=== PATIENT | female | born 1950 | race Caucasian/White ===

== ENCOUNTER → 2017-06-14 | Outpatient (CLI) | payer MEDICARE ==
[2017-06-14 11:27] LABS: ALT 41 U/L (9-52); AST 24 U/L (14-36); Alkaline Phosphatase 66 U/L (38-126); Anion Gap 10 mmol/L; Blood Urea Nitrogen 18 mg/dL (7-17); Calcium 9.6 mg/dL (8.4-10.2); Carbon Dioxide 29 mmol/L (22-30); Chloride 102 mmol/L (98-107); Glucose 211 mg/dL (74-99); Non-African American GFR(MDRD) >60 (>60 ml/min/1.73 sqM); Potassium 3.9 mmol/L (3.5-5.1); Sodium 141 mmol/L (137-145); Total Bilirubin 0.4 mg/dL (0.2-1.3); Total Protein 6.4 g/dL (6.3-8.2)
== END | disposition home or self-care (01) ==
LOC: LABWHC1 10:49
PROVIDERS: ATTEND Internal Medicine
DX: E11.65 Type 2 diabetes mellitus with hyperglycemia (principal)
CPT/HCPCS: 36415; 80053; 84681

== ENCOUNTER → 2018-02-20 | Outpatient (CLI) | payer MEDICARE ==
--- NOTE | 2018-02-20 08:40 | MR ---
EXAMINATION TYPE: MR brain wo/w con DATE OF EXAM: 02/20/2018 COMPARISON: NONE HISTORY: Severe headaches TECHNIQUE: Multiplanar, multisequence images of the brain and brainstem is performed without and with IV contras t, utilizing 7.0 mL intravenous Gadavist . FINDINGS: Diffusion weighted images demonstrate no evidence of a recent infarct or other diffusion ab normality. There is no extra-axial fluid collection. There are 2 punctate foci of T2/FLAIR hyperinte nsity within the right hemisphere in addition to mild periventricular white matter change. The larges t within the right frontal lobe on the right measures 4 mm on axial fat sat FLAIR image 16. On the le ft there are 3 punctate foci the largest measuring 3 mm in the periatrial left parietal white matter on image 19. The ventricular system and cisternal spaces are normal in size and appearance. The brai n volume is age appropriate. Midline structures demonstrate normal morphology. There is a 4 mm pineal gland cyst incidentally note d. The craniocervical junction appears within normal limits. Post contrast images demonstrate no abn ormal enhancement. The dural venous sinuses appear patent. The visualized sinuses demonstrate very mi nimal mucosal thickening within the left maxillary and ethmoid sinuses. Remaining paranasal sinuses a nd mastoid air cells are well aerated. The globes are intact. Major intracranial flow voids are maint ained and enhance with contrast although the right posterior communicating artery is not visualized a nd could be diminutive or congenitally absent. IMPRESSION: 1. Minimal nonspecific white matter change that given its distribution favors chronic migraines with superimposed mild sequela of microangiopathy. Overall burden is mild. 2. Mild paranasal sinus disease within the ethmoid and left maxillary sinuses. 3. No abnormal intracranial enhancement, midline shift or mass effect.
== END ==
LOC: RADMRIMAIN 05:58
PROVIDERS: ATTEND Internal Medicine
DX: R90.82 White matter disease, unspecified (principal); J32.8 Other chronic sinusitis; H11.32 Conjunctival hemorrhage, left eye
CPT/HCPCS: 82565; 70553; 36415; A9581

== ENCOUNTER 2019-02-28 09:24 | Day surgery (SDC) | payer MEDICARE ==
[2019-02-26 15:35] VITALS: BMI 27.4
[~2019-02-28 09:24] MED LIST: LACTATED RINGERS 1,000 ML IV SCH; LIDOCAINE 1% 20 ML VIAL (10MG/ML) FOR IV START INTRADERMA PRN
[2019-02-28 09:58] VITALS: RESP 16; TEMP 97.4
[2019-02-28 09:58] LABS: Glucose,Whole Blood 156 mg/dL (75-99)
[2019-02-28] MEDS ORDERED: PROPOFOL 10 MG/ML 20 ML VIAL IV ONE (10:35)
[2019-02-28] MEDS ORDERED: LIDOCAINE 1% INJ 10MG/ML (20 ML MDV) ONE (10:35)
--- NOTE | 2019-02-28 10:54 | P.PCN ---
Date of Procedure: 02/28/19 Procedure(s) Performed: BRIEF HISTORY: Patient is a 69-year-old pleasant white female scheduled for an elective colonoscopy as a part of screening for colorectal neoplasia. Her last colonoscopy was 17 years ago. PROCEDURE PERFORMED: Colonoscopy. PREOPERATIVE DIAGNOSIS: Screening for colon cancer. IV sedation per Anesthesia. PROCEDURE: After informed consent was obtained, the patient, was brought into the endoscopy unit. IV sedation was administered by Anesthesia under continuous monitoring. Digital rectal examination was normal. Initially the Olympus CF-160 flexible video colonoscope was then inserted in the rectum, gradually advanced into the cecum without any difficulty. Careful examination was performed as the scope was gradually being withdrawn. Ileocecal valve and the appendiceal orifice were visualized and appeared normal. Prep was excellent. Mucosa of the cecum, ascending colon, transverse colon, descending colon, sigmoid colon, and rectum appeared normal. Retroflexion was performed in the rectum and no lesions were seen. The patient tolerated the procedure well. IMPRESSION: Normal-appearing colon from rectum to cecum with no evidence of colitis or colorectal neoplasia. RECOMMENDATIONS: Findings of this examination were discussed with the patient as well as her family. He was advised to have a repeat screening colonoscopy in 10 years..
[2019-02-28 11:36] VITALS: BP 128/71; PULSE 63
== END 2019-02-28 11:51 | disposition home or self-care (01) ==
LOC: ORWHC2ENDO 09:24
PROVIDERS: ATTEND Internal Medicine Gastroenterology
DX: Z12.11 Encounter for screening for malignant neoplasm of colon (principal); I10 Essential (primary) hypertension; E78.5 Hyperlipidemia, unspecified; E11.9 Type 2 diabetes mellitus without complications; C44.311 Basal cell carcinoma of skin of nose; Z79.82 Long term (current) use of aspirin; Z79.84 Long term (current) use of oral hypoglycemic drugs; Z79.899 Other long term (current) drug therapy
CPT/HCPCS: G0121; J2001; J2704

== ENCOUNTER → 2019-07-12 | Outpatient (CLI) | payer MEDICARE ==
--- NOTE | 2019-07-12 09:45 | XR ---
EXAMINATION TYPE: XR lumbosacral spine min 4V DATE OF EXAM: 07/12/2019 COMPARISON: NONE HISTORY: 69-year-old female low back pain TECHNIQUE: 05/21/2014 FINDINGS: 3 mm nonobstructive calculus in each kidney. 5 lumbar type vertebral bodies. Facet arthropathy mid to lower lumbar spine. Mild degenerative disc disease and endplate spondylosis throughout. More moderat e degenerative disc disease L5-S1 with disc height loss and vacuum phenomenon. Vertebral body heights are preserved and alignment is maintained. No pars interarticularis defect. IMPRESSION: 1. Mild multilevel degenerative disc disease, more moderate at L5-S1. 2. Scattered mild facet arthropathy, greatest in the lower lumbar spine. 3. No vertebral compression collapse or malalignment. 4. A 3 mm nonobstructive calculus in each kidney.
--- NOTE | 2019-07-12 13:22 | US ---
EXAMINATION TYPE: US abdomen complete DATE OF EXAM: 07/12/2019 COMPARISON: NONE CLINICAL HISTORY: 69-year-old female R10.11 right upper quadrant abdominal pain. x 3 weeks TECHNIQUE: Multiple sonographic images of the abdomen are obtained. FINDINGS: EXAM MEASUREMENTS: Liver Length: 17.1 cm Gallbladder Wall: 0.1 cm CBD: 0.3 cm Spleen: 9.0 cm Right Kidney: 10.1 x 5.0 x 3.6 cm Left Kidney: 10.4 x 5.2 x 4.8 cm Pancreas: Only portions of the pancreas body are seen. Remainder is obscured by bowel gas shadowing. Liver: Somewhat echogenic and heterogeneous. No focal lesion seen. Borderline enlarged. Gallbladder: Layering gravel and small calculi. No abnormal distention or wall thickening.Evidence for sonographic Alvarez's sign: No CBD: wnl Spleen: wnl Right Kidney: No hydronephrosis. Left Kidney: No hydronephrosis. Upper IVC: wnl Abd Aorta: wnl IMPRESSION: 1. Layering gravel and small calculi within the gallbladder. 2. Somewhat echogenic and heterogeneous appearance to the liver could represent hepatic steatosis or other nonspecific hepatocellular disease. Clinically correlate. 3. No biliary ductal dilatation.
== END | disposition home or self-care (01) ==
LOC: RADUSWWP 08:10
PROVIDERS: ATTEND Internal Medicine
DX: M51.36 Other intervertebral disc degeneration, lumbar region (principal); M51.37 Other intervertebral disc degeneration, lumbosacral region; M46.96 Unspecified inflammatory spondylopathy, lumbar region; K80.20 Calculus of gallbladder without cholecystitis without obstruction
CPT/HCPCS: 72110; 76700

== ENCOUNTER → 2019-07-31 | Outpatient (CLI) | payer MEDICARE ==
--- NOTE | 2019-07-31 10:21 | XR ---
EXAMINATION TYPE: XR ankle complete RT DATE OF EXAM: 07/31/2019 CLINICAL HISTORY: Right ankle pain. Swelling over the lateral malleolus for 3 days with no known inju ry. TECHNIQUE: Frontal, lateral and oblique images of the right ankle are obtained. COMPARISON: None. FINDINGS: There is no acute fracture/dislocation evident in the right ankle. The ankle mortise appe ars within normal limits. Small plantar and Achilles heel spurs. Minimal scoliosis of the talotibial joint. No talar dome flattening. The overlying soft tissue appears unremarkable. IMPRESSION: There is no acute fracture or dislocation in the right ankle. Mild hindfoot arthropathy and small heel spurs.
== END ==
LOC: RADXRYALE 09:41
PROVIDERS: ATTEND Internal Medicine
DX: M12.871 Other specific arthropathies, not elsewhere classified, right ankle and foot (principal); M77.31 Calcaneal spur, right foot

== ENCOUNTER → 2020-11-20 | Outpatient (CLI) | payer MEDICARE ==
--- NOTE | 2020-11-20 11:45 | XR ---
EXAM TYPE: LUMBAR SPINE X RAY SERIES COMPARISON: NONE HISTORY: Pain TECHNIQUE: 4 views are submitted. FINDINGS: Alignment is anatomic. The pedicles are intact. The transverse processes are intact. There is mult ilevel hypertrophic and degenerative changes. Multilevel facet arthropathy. Vascular calcifications n oted. Surgical clips in the right upper quadrant. SI joint arthropathy noted. IMPRESSION: 1. Multilevel hypertrophic and degenerative changes.
== END | disposition home or self-care (01) ==
LOC: RADXRYALE 11:22
PROVIDERS: ATTEND Internal Medicine
DX: M47.817 Spondylosis without myelopathy or radiculopathy, lumbosacral region (principal)
CPT/HCPCS: 72110

== ENCOUNTER → 2021-06-10 | Outpatient (CLI) | payer MEDICARE ==
--- NOTE | 2021-06-11 12:05 | XR ---
EXAMINATION TYPE: XR sternum DATE OF EXAM: 06/10/2021 COMPARISON: NONE HISTORY: 71-year-old female [id number], unspecified chest pain TECHNIQUE: 2 views FINDINGS: No depressed or angulated sternal fracture seen. Sternomanubrial joint is intact. The sternoclavicula r joints appear symmetric. IMPRESSION: No depressed or angulated sternal fracture seen.
== END | disposition home or self-care (01) ==
LOC: RADXRYALE 16:11
PROVIDERS: ATTEND Internal Medicine
DX: R07.9 Chest pain, unspecified (principal)
CPT/HCPCS: 71120

== ENCOUNTER → 2021-07-27 | Outpatient (CLI) | payer MEDICARE ==
--- NOTE | 2021-07-27 21:46 | XR ---
EXAMINATION TYPE: XR ankle complete LT DATE OF EXAM: 07/27/2021 CLINICAL HISTORY: Pain after falling injury. TECHNIQUE: Frontal, lateral and oblique images of the left ankle are obtained. COMPARISON: None. FINDINGS: There is an acute minimally displaced intra-articular spiral type fracture lateral malleol us at level of the ankle mortise. Mild to moderate associated soft tissue swelling. Posterior and med ial malleoli are intact. The ankle mortise symmetry appears within normal limits. The overlying sof t tissue appears unremarkable. Small superior calcaneal spurring and moderate to large sized inferior calcaneal spurring is incidentally noted. IMPRESSION: There is an acute minimally displaced intra-articular spiral type fracture through the l ateral malleolus. (Prasad type B) Initial encounter closed type post traumatic fracture.
== END | disposition home or self-care (01) ==
LOC: RADXRYALE 16:33
PROVIDERS: ATTEND Internal Medicine
DX: S82.62XA Displaced fracture of lateral malleolus of left fibula, initial encounter for closed fracture (principal)

== ENCOUNTER → 2023-10-27 | Outpatient (CLI) | payer MEDICARE ==
--- NOTE | 2023-10-28 14:51 | MM ---
Reason for Exam: Screening (asymptomatic). Last mammogram was performed 2 year(s) and 1 month(s) ago. Patient History: Menarche at age 12. First Full-Term at age 25. Postmenopausal. Other cancer. Hormonal Contraceptives, starting at age 20 for 20 years. Risk Values: Marisol 5 year model risk: 2.0%. NCI Lifetime model risk: 4.8%. Prior Study Comparison: 09/23/2011 Bilateral Screening Mammogram, [facility]. 11/14/2012 Bilateral Screening Mammogram, [facility]. 01/01/2014 Bilateral Screening Mammogram, [facility]. Tissue Density: The breast tissue is heterogeneously dense. This may lower the sensitivity of mammography. Findings: Analyzed By CAD. There is no suspicious group of microcalcifications or new suspicious mass. Benign-appearing calcifications bilaterally. Overall Assessment: Benign, BI-RAD 2 Management: Screening Mammogram of both breasts in [address] [facility] will attempt to contact patient to return for supplemental views and ultrasound if indicated. Patient should continue monthly self-breast exams. A clinical breast exam by your physician is recommended on an annual basis. This exam should not preclude additional follow-up of suspicious palpable abnormalities. Note on Marisol scores and lifetime risk: 1. A Marisol score greater than 3% is considered moderate risk. If this is the case, consider specialist referral to assess eligibility for a risk reducing agent. 2. If overall lifetime risk for the development of breast cancer is 20% or higher, the patient may qualify for future screening with alternating mammogram and breast MRI. Electronically signed and approved by: Matt Kim DO
== END | disposition home or self-care (01) ==
LOC: RADMAMWWP 10:35
PROVIDERS: ATTEND Internal Medicine
DX: Z12.31 Encounter for screening mammogram for malignant neoplasm of breast (principal); Z78.0 Asymptomatic menopausal state
CPT/HCPCS: 77063; 77067

== ENCOUNTER → 2023-12-22 | Outpatient (CLI) | payer MEDICARE ==
--- NOTE | 2023-12-23 10:03 | BD ---
EXAMINATION TYPE: Axial Bone Density DATE OF EXAM: 12/22/2023 CLINICAL HISTORY: 73 years old Female. ICD-10 CODE: N95.8 OTHER SPECIFIED MENOPAUSAL AND PERIMENOPAU DAX Height: 62 Weight: 142.2 FRAX RISK QUESTIONS: Alcohol (3 or more units per day): no Family History (Parent hip fracture): no Glucocorticoids (More than 3mos): no (Ex: prednisone, prednisolone, methylprednisolone, dexamethasone, and hydrocortisone). History of Fracture in Adulthood: yes Secondary Osteoporosis: 1. Type 1 Diabetes: no 2. Hyperthyroidism: no 3. Menopause before 45: no 4. Malnutrition: no 5. Chronic liver disease: no Rheumatoid Arthritis: no Current Tobacco Use: no RISK FACTORS HISTORY OF: Surgery to Spine/Hip(right/left)/Wrist (right/left): no EXAM MEASUREMENTS: Bone mineral densitometry was performed using the Parrut System. Bone mineral density as measured about the Lumbar spine is: ----- L1-L4(G/cm2): 1.525 T Score Values are as follows: ----- L1: 1.7 ----- L2: 1.8 ----- L3: 3.8 ----- L4: 3.7 ----- L1-L4: 2.9 Z Score Values are as follows: ----- L1: 3.5 ----- L2: 3.5 ----- L3: 5.6 ----- L4: 5.4 ----- L1-L4: 4.6 Bone mineral density has: increased 2.9 % since study of: 09.09.2010 Bone mineral density about the R hip (g/cm2): 1.095 Bone mineral density about the L hip (g/cm2): 1.066 T Score values are as follows: -----R Neck: -0.2 -----L Neck: 0.5 -----R Total: 0.7 -----L Total: 0.5 Z Score values are as follows: -----R Neck: 1.7 -----L Neck: 2.4 -----R Total: 2.4 -----L Total: 2.1 Bone mineral density has: decreased -3.0 % since study of: 09.09.2010 FRAX%s: The graph provided illustrates a 12.2% chance for a major osteoporotic fx and a 1.0% chance f or the hips probability for fx in 10 years time. IMPRESSION: Normal (Values between +1 and -1 indicate normal bone mass). Consider repeating this study in 5 year s or sooner if there is some new clinical indication. NOTE: T-SCORE=SD OF THE YOUNG ADULT MEAN.
== END | disposition home or self-care (01) ==
LOC: RADBDWWP 14:13
PROVIDERS: ATTEND Internal Medicine
DX: N95.8 Other specified menopausal and perimenopausal disorders (principal); M85.88 Other specified disorders of bone density and structure, other site
CPT/HCPCS: 77080

== ENCOUNTER 2024-05-28 05:34 | Day surgery (SDC) | payer MEDICARE ==
[2024-05-28] MEDS ORDERED: NITROGLYCERIN SL TABS 0.4 MG TAB SUBLINGUAL PRN (05:58)
[2024-05-28] MEDS ORDERED: HEPARIN SODIUM,PORCINE (1 ML) 2,500 UNIT in SODIUM CHLORIDE 0.9% 250 ML IRRIGATION PRN (05:58)
[2024-05-28] MEDS ORDERED: ALPRAZolam 0.5 MG TAB PO PRN (05:58)
[2024-05-28] MEDS ORDERED: HEPARIN SODIUM,PORCINE 10,000 UNIT in SODIUM CHLORIDE 0.9% 1,000 ML IRRIGATION PRN (05:58)
[2024-05-28] MEDS ORDERED: ALPRAZolam 0.25 MG TAB PO PRN (05:58)
[2024-05-28 06:33] LABS: Basophils # (A) 0.1 k/uL (0-0.2); Basophils % (A) 1 %; Eosinophils # (A) 0.5 k/uL (0-0.7); Eosinophils % (A) 5 %; HCT 44.7 % (34.0-46.0); HGB 14.6 gm/dL (11.4-16.0); Lymphocytes # (A) 2.9 k/uL (1.0-4.8); Lymphocytes % (A) 27 %; MCH 30.6 pg (25.0-35.0); MCHC 32.7 g/dL (31.0-37.0); MCV 93.4 fL (80.0-100.0); Mean Platelet Volume 8.3; Monocytes # (A) 0.8 k/uL (0-1.0); Monocytes % (A) 7 %; Neutrophils # (A) 6.3 k/uL (1.3-7.7); Neutrophils % (A) 58 %; Platelet Count 308 k/uL (150-450); RBC 4.79 m/uL (3.80-5.40); RDW 12.6 % (11.5-15.5); WBC 10.9 k/uL (3.8-10.6)
[2024-05-28 06:33] LABS: Glucose,Whole Blood 219 mg/dL (70-110)
[2024-05-28] MEDS: INSULIN ASPART (NovoLOG) 100 UNIT/ML VIAL SQ ONE (06:37)
[2024-05-28] MEDS: SODIUM CHLORIDE 0.9% 1,000 ML in EMPTY BAG 1 BAG IV SCH (06:37)
[2024-05-28] MEDS: SODIUM CHLORIDE 0.9% 1,000 ML IV ONE (06:40)
[2024-05-28 06:43] LABS: African American GFR (CKD) 86 (>60 ml/min/1.73 sqM); Anion Gap 8 mmol/L; Blood Urea Nitrogen 35 mg/dL (7-17); Calcium 10.3 mg/dL (8.4-10.2); Carbon Dioxide 31 mmol/L (22-30); Chloride 101 mmol/L (98-107); Glucose 221 mg/dL (74-99); Non-African American GFR(CKD) 75 (>60 ml/min/1.73 sqM); Potassium 3.7 mmol/L (3.5-5.1); Sodium 140 mmol/L (137-145)
[2024-05-28] MEDS ORDERED: ASPIRIN 325 MG TAB PO ONE (07:00)
[2024-05-28 07:01] VITALS: RESP 16; TEMP 98
[2024-05-28] MEDS: HEPARIN SODIUM,PORCINE (1 ML) 2,500 UNIT in SODIUM CHLORIDE 0.9% 250 ML IRRIGATION ONE (07:30)
[2024-05-28] MEDS: HEPARIN SODIUM,PORCINE 10,000 UNIT in SODIUM CHLORIDE 0.9% 1,000 ML IRRIGATION ONE (07:30)
[2024-05-28] MEDS: MIDAZOLAM 2 MG/2 ML VIAL IVP ONE (07:42)
[2024-05-28] MEDS: LIDOCAINE 1% INJ 10MG/ML (20 ML MDV) SQ ONE (07:43)
[2024-05-28] MEDS: VERAPAMIL SYRINGE (5 MG/10 ML) INTRAARTER ONE (07:44)
[2024-05-28] MEDS: HEPARIN SODIUM 1,000 UN/ML (10ML VL) IVP ONE (07:47)
[2024-05-28] MEDS: IOPAMIDOL-370 100ML BTL INJ ONE (07:51)
[2024-05-28] MEDS ORDERED: RX INFO: IV CONTRAST WAS GIVEN 1 EACH MISC MISCELLANE PRN (07:56)
--- NOTE | 2024-05-28 07:59 | P.PCN ---
Date of Procedure: 05/28/24 Operative Findings: CARDIAC CATHETERIZATION PERFORMING PHYSICIAN: Candelario Bruno MD, RPVI PROCEDURE PERFORMED: 1. Selective right and left coronary angiogram 2. Left heart catheterization 3. Ultrasound-guided access of the right radial artery INDICATION: Symptomatic 74-year-old female patient with abnormal myocardial perfusion imaging stress test COMPLICATION: None APPROACH: Right radial artery LEVEL OF SEDATION: Moderate with a sedation length of 16 minutes PROCEDURE DESCRIPTION: After obtaining an informed consent, the patient was brought to cardiac dye lab technician. Local anesthesia was performed using lidocaine subcutaneously. The right radial artery was cannulated using Seldinger technique, the guidewire passed easily, following that we advanced a 5-[place] sheath dilator assembly, the wire and dilator were removed and sheath was flushed. Following that, 2 mg of verapamil along with 5000 unit heparin were given. Selective right and left coronary angiogram using a 6-[place] JR4 and JL 3.5 catheters. Following that we did left heart catheterization using 6-[place] pigtail catheter . The procedure was completed there was no complication. SELECTIVE CORONARY ANGIOGRAM: The right coronary artery: Large-caliber vessel and a dominant vessel and appears to be angiographically normal Left main: Calcified with mild disease only The left circumflex: Large-caliber vessel nondominant vessel appears to be angiographically normal and gives rise into multiple obtuse marginal branches including the first and second and third obtuse marginal branches and both appear to be angiographically normal The left anterior descending artery: Large-caliber vessel and appears to be angiographically normal as well. Does not reach the apex HEMODYNAMICS: The LVEDP was 8 mmHg with no significant gradient across aortic valve CONCLUSION: 1. Mild nonobstructive CAD 2. Normal left-sided filling pressure POSTPROCEDURE MANAGEMENT: Medical treatment
[2024-05-28] MEDS ORDERED: SODIUM CHLORIDE 0.9% 1,000 ML IV SCH (08:00)
[2024-05-28 12:33] VITALS: BP 111/63; PULSE 67
== END 2024-05-28 12:28 | disposition home or self-care (01) ==
LOC: CATHCVL 05:34
PROVIDERS: ATTEND Internal Medicine Interventional Cardiology
DX: I25.10 Atherosclerotic heart disease of native coronary artery without angina pectoris (principal); I10 Essential (primary) hypertension; E78.5 Hyperlipidemia, unspecified; E11.9 Type 2 diabetes mellitus without complications; I77.819 Aortic ectasia, unspecified site; Z79.84 Long term (current) use of oral hypoglycemic drugs; Z79.82 Long term (current) use of aspirin; Z79.899 Other long term (current) drug therapy
CPT/HCPCS: 93458; 80048; 85025; 99152; C1769; C1894; J2250; J1644 ×3; J2001; Q9967